=== PATIENT | female | born 1940 | race Two or more races ===

== ENCOUNTER → 2019-09-08 | Emergency (ER) | payer OTHER ==
[~2019-09-08] VITALS: Ht 152.4 cm; Wt 68.0 kg
[~2019-09-08] MED LIST: ATACAND32 MG
== END | disposition left against medical advice (07) ==
LOC: ER 16:41
DX: Z53.20 Procedure and treatment not carried out because of patient's decision for unspecified reasons (principal)

== ENCOUNTER → 2019-12-23 | Day surgery (SDC) | payer OTHER ==
[~2019-12-23] MED LIST changes: +NORVASC5 MG PO
== END | disposition home or self-care (01) ==
LOC: CIR.AMB 06:00
DX: M23.321 Other meniscus derangements, posterior horn of medial meniscus, right knee (principal); M23.351 Other meniscus derangements, posterior horn of lateral meniscus, right knee; M65.861 Other synovitis and tenosynovitis, right lower leg

== ENCOUNTER 2020-02-03 11:19 | Outpatient (CLI) | payer OTHER | END 2020-02-03 11:25 | disposition home or self-care (01) | LOC: NUCLEAR 11:19 | PROVIDERS: ATTEND Orthopaedic Surgery | DX: I87.2 Venous insufficiency (chronic) (peripheral) (principal) ==